=== PATIENT | male | born 1945 | race Caucasian/White ===

== ENCOUNTER 2022-09-15 01:29 | Inpatient (IN) | payer MEDICARE ==
[2022-09-15] MEDS ORDERED: Ondansetron PF 4 MG/2 ML Vial IVP PRN (04:21)
[2022-09-15] MEDS ORDERED: Ipratropium/Albuterol 3 ML NEB NEB PRN (04:21)
[2022-09-15] MEDS ORDERED: Morphine 2 MG/ML VIAL SLOW IVP PRN (04:21)
[2022-09-15] MEDS ORDERED: hydrALAZINE 20 MG/ML VIAL SLOW IVP PRN (04:21)
[2022-09-15] MEDS ORDERED: Dextrose 5% in Water 1,000 ML IV PRN (04:21)
[2022-09-15] MEDS ORDERED: Dextrose 50% Abboject 50 ML SYRINGE SLOW IVP PRN (04:21)
[2022-09-15] MEDS ORDERED: Insulin Regular 300 UNITS/3 ML VIAL SC PRN ×2 (04:21)
[2022-09-15] MEDS ORDERED: Ondansetron ODT 4 MG TAB PO PRN (04:21)
[2022-09-15] MEDS ORDERED: Cyclobenzaprine 10 MG TAB PO PRN (04:25)
[2022-09-15] MEDS ORDERED: traMADol HCl 50 MG TAB PO PRN (04:25)
[2022-09-15] MEDS ORDERED: Sodium Chloride 0.9% 1,000 ML IV SCH (04:30)
[2022-09-15 05:09] VITALS: BMI 29.6
[2022-09-15] MEDS: Acetaminophen 500 MG TAB PO SCH ×3 (05:55→18:48)
[2022-09-15] MEDS: traMADol HCl 50 MG TAB PO SCH ×3 (05:55→18:49)
[2022-09-15 06:10] LABS: #Eosinphils 0.1 thou/uL (0.0-0.7); #Lymphocytes 0.7 thou/uL (1.20-3.40); #Monocytes 1.1 thou/uL (0.11-0.59); #Neutrophils 6.8 thou/uL (1.40-6.50); %Basophils 0.3 % (0.0-1.0); %Eosinophils 0.7 % (0.0-10.0); %Monocytes 12.3 % (0.0-10.0); %Neutrophils 78.6 % (42.0-75.0); Hemoglobin 14.7 g/dL (14.0-18.0); Mean Corpuscular HGB CONC 33.7 g/dL (32.0-36.0); Mean Corpuscular Hemoglobin 31.7 pg (27.0-31.0); Mean Corpuscular Volume 93.9 fl (78.0-98.0); Mean Platelet Volume 10.7 fL (7.4-10.4); Platelet Count 140 10x3/uL (130-400); Red Blood Cell (RBC) Count 4.63 mill/uL (4.70-6.10); White Blood Cell (WBC) Count 8.6 10x3/uL (4.8-10.8)
[2022-09-15 06:29] LABS: Anion Gap 13 mmol/L (10-20); BUN (Urea Nitrogen) 26 mg/dL (8.4-25.7); Calc. Creatinine Clearance 42 mL/min (70-130); Calcium 8.8 mg/dL (7.8-10.44); Carbon Dioxide 22 mmol/L (23-31); Chloride 108 mmol/L (98-107); Estimated GFR 32; Glucose 223 mg/dL (83-110); Magnesium 2.1 mg/dL (1.6-2.6); Phosphorus 3.4 mg/dL (2.3-4.7); Potassium 4.5 mmol/L (3.5-5.1); Sodium 138 mmol/L (136-145)
[2022-09-15] MEDS: Famotidine 20 MG TAB PO SCH (09:06)
[2022-09-15 14:27] LABS: Hemoglobin 14.7 g/dL (14.0-18.0); Mean Corpuscular HGB CONC 33.4 g/dL (32.0-36.0); Mean Corpuscular Hemoglobin 31.5 pg (27.0-31.0); Mean Corpuscular Volume 94.4 fl (78.0-98.0); Mean Platelet Volume 10.3 fL (7.4-10.4); Platelet Count 131 10x3/uL (130-400); RBC Distribution Width 13.1 % (11.5-14.5); Red Blood Cell (RBC) Count 4.66 mill/uL (4.70-6.10)
[2022-09-15] MEDS: Amiodarone 200 MG TAB PO SCH (20:25)
[2022-09-15] MEDS: Rosuvastatin 20 MG TAB PO SCH (20:25)
[2022-09-16] MEDS: traMADol HCl 50 MG TAB PO SCH ×5 (00:20→23:46)
[2022-09-16] MEDS: Acetaminophen 500 MG TAB PO SCH ×5 (00:21→23:41)
[2022-09-16] MEDS: Valsartan 80 MG TAB PO SCH (08:30)
[2022-09-16] MEDS: Famotidine 20 MG TAB PO SCH (08:30)
[2022-09-16] MEDS: Amiodarone 200 MG TAB PO SCH (08:31)
[2022-09-16 09:02] LABS: #Eosinphils 0.1 thou/uL (0.0-0.7); #Lymphocytes 0.8 thou/uL (1.20-3.40); #Monocytes 0.7 thou/uL (0.11-0.59); #Neutrophils 5.5 thou/uL (1.40-6.50); %Basophils 0.5 % (0.0-1.0); %Eosinophils 1.6 % (0.0-10.0); %Monocytes 10.2 % (0.0-10.0); %Neutrophils 76.6 % (42.0-75.0); Hemoglobin 14.6 g/dL (14.0-18.0); Mean Corpuscular HGB CONC 32.6 g/dL (32.0-36.0); Mean Corpuscular Hemoglobin 30.8 pg (27.0-31.0); Mean Corpuscular Volume 94.6 fl (78.0-98.0); Mean Platelet Volume 10.5 fL (7.4-10.4); Platelet Count 130 10x3/uL (130-400); Red Blood Cell (RBC) Count 4.75 mill/uL (4.70-6.10); White Blood Cell (WBC) Count 7.2 10x3/uL (4.8-10.8)
[2022-09-16 09:20] LABS: Anion Gap 14 mmol/L (10-20); BUN (Urea Nitrogen) 23 mg/dL (8.4-25.7); Calc. Creatinine Clearance 54 mL/min (70-130); Calcium 8.6 mg/dL (7.8-10.44); Carbon Dioxide 20 mmol/L (23-31); Cardiac Risk 3.2 (Less than 4.5); Chloride 107 mmol/L (98-107); Cholesterol 129 mg/dl (< 200 Desired); Estimated GFR 42; Glucose 134 mg/dL (83-110); HDL Cholesterol 40 mg/dL (>60 Neg Risk); LDL Cholesterol, Calculated 57 mg/dL; Magnesium 1.9 mg/dL (1.6-2.6); Phosphorus 3.5 mg/dL (2.3-4.7); Potassium 4.5 mmol/L (3.5-5.1); Sodium 136 mmol/L (136-145); Triglycerides 160 mg/dL (Less than 150)
[2022-09-16] MEDS: HumaLOG 300 UNITS/3 ML VIAL SC PRN ×3 (12:53→20:23)
[2022-09-16 18:25] VITALS: BP 157/71
[2022-09-16] MEDS: Rosuvastatin 20 MG TAB PO SCH (20:20)
[2022-09-16] MEDS ORDERED: Amiodarone 200 MG TAB PO SCH (21:00)
[2022-09-17 03:33] LABS: #Eosinphils 0.1 thou/uL (0.0-0.7); #Lymphocytes 0.9 thou/uL (1.20-3.40); #Monocytes 1.2 thou/uL (0.11-0.59); #Neutrophils 7.9 thou/uL (1.40-6.50); %Basophils 0.1 % (0.0-1.0); %Eosinophils 1.1 % (0.0-10.0); %Lymphocytes 9.2 % (21.0-51.0); %Monocytes 11.4 % (0.0-10.0); %Neutrophils 78.2 % (42.0-75.0); Mean Corpuscular HGB CONC 34.7 g/dL (32.0-36.0); Mean Corpuscular Hemoglobin 32.2 pg (27.0-31.0); Mean Platelet Volume 10.4 fL (7.4-10.4); Platelet Count 123 10x3/uL (130-400); RBC Distribution Width 12.9 % (11.5-14.5); Red Blood Cell (RBC) Count 4.66 mill/uL (4.70-6.10); White Blood Cell (WBC) Count 10.1 10x3/uL (4.8-10.8)
[2022-09-17 03:58] LABS: Anion Gap 12 mmol/L (10-20); BUN (Urea Nitrogen) 23 mg/dL (8.4-25.7); Calc. Creatinine Clearance 46 mL/min (70-130); Calcium 8.8 mg/dL (7.8-10.44); Carbon Dioxide 25 mmol/L (23-31); Chloride 102 mmol/L (98-107); Estimated GFR 35; Glucose 159 mg/dL (83-110); Magnesium 2.1 mg/dL (1.6-2.6); Phosphorus 3.3 mg/dL (2.3-4.7); Potassium 4.2 mmol/L (3.5-5.1); Sodium 135 mmol/L (136-145)
[2022-09-17] MEDS: Acetaminophen 500 MG TAB PO SCH ×2 (05:58→12:50)
[2022-09-17] MEDS: traMADol HCl 50 MG TAB PO SCH ×2 (05:59→12:06)
[2022-09-17 07:46] VITALS: TEMP 97.8
[2022-09-17] MEDS: Famotidine 20 MG TAB PO SCH (08:49)
[2022-09-17] MEDS: Valsartan 80 MG TAB PO SCH (08:49)
[2022-09-17] MEDS ORDERED: Amiodarone 200 MG TAB PO SCH (09:00)
[2022-09-17] MEDS ORDERED: Amlodipine 5 MG TAB PO SCH (09:00)
[2022-09-17] MEDS ORDERED: Bisacodyl 10 MG SUPP PR PRN (11:47)
[2022-09-17] MEDS ORDERED: Scopolamine 1.5 mg/72 hour Patch TD SCH (12:00)
[2022-09-22] MEDS ORDERED: Clopidogrel Bisulfate 75 MG TAB PO SCH (09:00)
== END 2022-09-17 16:00 | disposition home health service (06) | DRG 699 ==
LOC: T4-B 01:29 → IMCU/EMU 05:21 → OBSVTOIN 15:32
PROVIDERS: ADMIT Surgery; ATTEND Surgery
DX: S37.011A Minor contusion of right kidney, initial encounter (principal); I13.0 Hypertensive heart and chronic kidney disease with heart failure and stage 1 through stage 4 chronic kidney disease, or unspecified chronic kidney disease; S22.31XA Fracture of one rib, right side, initial encounter for closed fracture; I50.22 Chronic systolic (congestive) heart failure; N17.9 Acute kidney failure, unspecified; R00.1 Bradycardia, unspecified; N28.89 Other specified disorders of kidney and ureter; E11.22 Type 2 diabetes mellitus with diabetic chronic kidney disease; I25.10 Atherosclerotic heart disease of native coronary artery without angina pectoris; W18.09XA Striking against other object with subsequent fall, initial encounter; N18.30 Chronic kidney disease, stage 3 unspecified; K52.9 Noninfective gastroenteritis and colitis, unspecified; D63.1 Anemia in chronic kidney disease; I48.0 Paroxysmal atrial fibrillation; Z95.5 Presence of coronary angioplasty implant and graft; Z79.02 Long term (current) use of antithrombotics/antiplatelets; Z98.890 Other specified postprocedural states; Z88.8 Allergy status to other drugs, medicaments and biological substances
CPT/HCPCS: 36415; 36416; 80048; 80061; 82570; 83735; 84100; 84156; 84443; 85025; 93005; 93010; 93306; J1815; J7050; Q0162

== ENCOUNTER 2023-02-12 10:06 | Outpatient (CLI) | payer MEDICARE | END 2023-02-12 10:07 | disposition home or self-care (01) | LOC: SCSMRI 10:06 | PROVIDERS: ATTEND Urology | DX: N28.1 Cyst of kidney, acquired (principal) | CPT/HCPCS: 74183; 82565 ==

== ENCOUNTER 2024-03-03 13:43 | Outpatient (CLI) | payer MEDICARE | END 2024-03-03 13:44 | disposition home or self-care (01) | LOC: SCSMRI 13:43 | PROVIDERS: ATTEND Urology | DX: N28.1 Cyst of kidney, acquired (principal) | CPT/HCPCS: 74183; 82565 ==